=== PATIENT | female | born 1935 | race Caucasian/White ===

== ENCOUNTER 2017-07-10 21:22 | Inpatient (IN) | payer OTHER ==
[~2017-07-10] VITALS: Ht 162.6 cm; Wt 52.2 kg
[~2017-07-10 21:22] MED LIST: NOHOMEMEDICATIONS; NORCO 5-325 TA1 EACH PO
[2017-07-10 21:23] VITALS: BP 171/110
[2017-07-10 21:43] LABS: ABSOLUTE EOSINOPHILS 0.1 thou/uL (0.0-0.7); ABSOLUTE LYMPHOCYTES 3.9 thou/uL (0.8-5.3); ABSOLUTE MONOCYTES 0.5 thou/uL (0.0-1.2); ABSOLUTE NEUTROPHILS 3.9 thou/uL (1.6-8.1); BASOPHILS 0.6 %; EOSINOPHILS 0.8 %; HEMATOCRIT 34.6 % (37.0-47.0); HEMOGLOBIN 11.5 gm/dL (12.0-15.0); LYMPHOCYTES 46.4 %; MCH 33.6 pg (26.0-34.0); MCHC 33.3 g/dL (28.0-37.0); MCV 100.6 fL (80.0-100.0); MONOCYTES 6.1 %; MPV 7.1 fl. (7.2-11.1); NUCLEATED RBCS 0 /100WBC; PLATELET COUNT* 188 thou/uL (150-400); POLYS 46.1 %; RBC 3.44 mil/uL (4.20-5.00); RDW-CV 13.6 % (10.5-14.5); WBC 8.4 thou/uL (4.0-11.0)
[2017-07-10 21:51] LABS: APTT 24.7 Seconds (25.0-31.3)
[2017-07-10 22:05] LABS: ALBUMIN 3.3 g/dL (3.4-5.0); BUN 20 mg/dL (7-18); CALCIUM 8.8 mg/dL (8.5-10.1); GLUCOSE 272 mg/dL (70-99); LIPASE 217 U/L (73-393); NT-PRO BRAIN NAT PEPTIDE 642 pg/mL (<300); SGOT 70 U/L (15-37); SGPT 53 U/L (30-65); TROPONIN-I LEVEL <0.06 ng/mL (<0.06)
[2017-07-10 22:17] LABS: ALKALINE PHOSPHATASE 143 U/L (46-116); ANION GAP 7 mmol/L (7-16); CHLORIDE 99 mmol/L (98-107); CO2 34 mmol/L (21-32); POTASSIUM 4.1 mmol/L (3.5-5.1); SODIUM 140 mmol/L (136-145); TOTAL BILIRUBIN 0.3 mg/dL (<0.1-1.0)
[2017-07-10 22:32] LABS: HCO3 33.4 mmol/L (22.0-26.0); PCO2 81.1 mmHg (35.0-45.0); PO2 97.1 mmHg (75.0-100.0)
[2017-07-10 22:33] LABS: BE 3.6 mmol/L (-2 to +3)
[2017-07-10 23:43] VITALS: BP 119/53
[2017-07-11] VITALS (22 sets, daily range): BP systolic 93–152; BP diastolic 51–94
[2017-07-11 07:36] LABS: BE 2.4 mmol/L (-2 to +3); HCO3 28.6 mmol/L (22.0-26.0); PCO2 52.2 mmHg (35.0-45.0); PO2 99.9 mmHg (75.0-100.0)
[2017-07-11] MEDS ORDERED: GABAPENTIN 100100 MG PO (09:31)
[2017-07-11] MEDS ORDERED: PAXIL10 MG PO ×2 (09:32→09:35)
[2017-07-11] MEDS ORDERED: DUONEB 2.5-0.5 M3 ML INH (09:32)
[2017-07-11] MEDS ORDERED: COLACE100 MG PO (09:33)
[2017-07-11] MEDS ORDERED: LASIX 20 MG TAB20 MG PO (09:33)
[2017-07-11] MEDS ORDERED: PRIMIDONE50 MG PO (09:33)
[2017-07-11] MEDS ORDERED: LIPITOR10 MG PO (09:34)
[2017-07-11] MEDS ORDERED: ATIVAN0.5 MG PO (09:34)
[2017-07-11] MEDS ORDERED: ZYRTEC10 M4 PO (09:35)
[2017-07-11] MEDS ORDERED: ALDACTONE25 MG PO (09:36)
[2017-07-11] MEDS ORDERED: SPIRIVA INH (09:37)
[2017-07-11] MEDS ORDERED: SYMBICORT160 MCG/4. INH (09:37)
[2017-07-11] MEDS ORDERED: LOPRESSOR25 PO (09:38)
--- NOTE | 2017-07-11 11:48 | EKG ---
[place] [address] ELECTROCARDIOGRAM REPORT Name: YVES CARRANZA Room: [address] IN .R.#: [id number] Admission: 07/10/17 Attend Phys: Mario Funes MD Discharge: 07/21/17 Date of : 35 Report #: [id number] THIS REPORT FOR: //name// [facility] ED Test Date: 2017-07-10 Test Time: 21:36:31 Pat Name: YVES CARRANZA Department: Room: [facility] Gender: F Manager Hospitality: BD : 1935 Requested By: Mendoza Mays Order Number: [id number] MD: Hany Diego Measurements Intervals [place] Rate: 108 P: 70 WV: 130 QRS: -7 QRSD: 139 T: 132 QT: 370 QTc: 496 Interpretive Statements Fast sinus arrhythmia Left atrial enlargement Left bundle branch block No previous ECG available for comparison Electronically Signed On 07-11-2017 11:48:36 LAB CLERK by Hany Diego [email or web address] <ELECTRONICALLY SIGNED> By: Hany Diego MD, [facility] 07/11/17 1148 2136 35 Hany Diego MD, [facility] /EPI
--- NOTE | 2017-07-11 13:08 | CON ---
[address] [address] CONSULTATION Name: DILLONYVES David Room: [address] IN ..#: [id number] Admission: 07/10/17 Attend Phys: Mario Funes MD Discharge: 07/21/17 Date of : 35 Report #: [id number] THIS REPORT FOR: //name// CC: Jazlyn Funse DATE OF SERVICE: 07/11/2017 REQUESTING PHYSICIAN: Mario Funes MD. REASON FOR CONSULTATION: Acute respiratory failure. DISCUSSION: The patient is a pleasant 81-year-old woman who was brought in by ambulance after being found less responsive with low O2 saturations yesterday. She was brought in via EMS. She has not been at this facility previously due to her low O2 saturations. She was seen in the Emergency Department with low sats. She is typically on O2 at home. Was placed on BiPAP and blood gases came back revealing marked hypercapnia. Her pH was down to 7.23 with a pCO2 of 81. Was placed in the ICU overnight, is on BiPAP. Follow up blood gases did show some improvement this morning. She was taken off BiPAP just prior to my arrival there. Currently, family is not here; reportedly, her daughter is en route. She has not been at this facility before, so we have limited information on her. She is not a very good historian. She is a former smoker and has been told she has COPD. She does have inhalers at home as well as a nebulizer. She is chronically on O2 reportedly at 4 liters. She cannot recall if she is chronically on prednisone. She notes she had been getting more short of breath. Denies any chest pain or hemoptysis. She states she has seen a early morning in the past, but was told there was nothing else that could be done and she was just to follow up with her regular physician. She also has a history of heart disease and sees Dr. Flanagan for that. She apparently was at [facility] a year ago. She was on the ventilator. She notes at one point, there was talk of withdrawal of care. She was able to improve, was extubated and did have spent a long time in skilled before she was able to get home. PAST MEDICAL HISTORY: Difficult to get in detail. Again, she is not a very good historian. She notes she also did not sleep well. Has COPD and heart disease. It is not clear if she had any stents placed last year. Has had a prior appendectomy. SOCIAL HISTORY: Former smoker. She quit at least several years ago, she cannot recall. She is originally from [place], came to [facility] in the late 1950s. FAMILY HISTORY: [place] [address] CONSULTATION Name: DILLONYVES Hernandez Room: [address] IN [facility]#: [id number] Admission: 07/10/17 Attend Phys: Mario Funes MD Discharge: 07/21/17 Date of : 35 Report #: [id number] REVIEW OF SYSTEMS: Question some of the reliability given her condition at this time. She is awake, alert, but again not a very good historian at this time. She notes she does tend to cough when she takes any liquids or p.o. intake. However, she does not feel like she is aspirating. She denies vomiting at home. Has not had any swelling in her lower extremities. Denies any chest pain. She is chronically short of breath. PHYSICAL EXAMINATION: GENERAL APPEARANCE: Have a thin, chronically ill-appearing woman. Is currently on O2 via nasal cannula in the Intensive Care Unit. She is a little hard of hearing. Is fair to poor historian at this time. HEENT: Head is normocephalic. Sclerae nonicteric. Mucous membranes do look dry. NECK: Negative for adenopathy. Neck veins are prominent. Neck muscles well developed. No supraclavicular adenopathy is noted. HEART: Regular. Mildly tachycardic. No S3 is heard. LUNGS: Reveal breath sounds to be markedly diminished. She has a few expiratory wheezes heard. A few rhonchi. Cough is fair as she is quite thin. ABDOMEN: Soft. She denies any tenderness to palpation. No definite hepatosplenomegaly is noted. Mcneil catheter in place. EXTREMITIES: Thin. She has some muscle wasting. Does have quite few ecchymotic areas noted over her arms. No calf tenderness. LABORATORY AND X-RAY FINDINGS: A chest x-ray shows prominence of interstitial markings noted bilaterally, left greater than right. She has some blunting of the costophrenic angle and has a very small left pleural effusion. We have no older films available for comparison purposes. Cannot rule out some underlying interstitial lung disease. Arterial blood gases yesterday evening when she arrived, she had a pH 7.23, a pCO2 of 81, a pO2 of 97, a bicarbonate of 33 with a saturation of 97%. Repeat gases this morning pH 7.35, a pCO2 of 52, pO2 of 100, bicarbonate of 29 and FiO2 of 35% on the BiPAP. She is now on nasal cannula with O2 saturations in the high 90s. White blood cell count 8400, hemoglobin 11.5, hematocrit 34.6, MCV 101. Platelets are normal. On her chemistry, BUN is 20, creatinine of 1.0, serum bicarbonate was 34. ProBNP 642, lactic acid was 1.7, up to 3.3. Albumin 3.3. Troponins unremarkable. Coag studies unremarkable. Blood cultures were sent. IMPRESSION: 1. Acute respiratory failure superimposed on chronic respiratory failure. Baseline does appear to have chronic obstructive pulmonary disease, most likely severe. She is O2 dependent but not clear if she is steroid dependent or not. Clinically, has improved with BiPAP overnight, though she was quite uncomfortable with it. 2. Chronic obstructive pulmonary disease, baseline appears that she has severe disease. Cannot rule out some [place] [address] CONSULTATION Name: YVES CARRANZA Room: [address] IN [facility].#: [id number] Admission: 07/10/17 Attend Phys: Mario Funes MD Discharge: 07/21/17 Date of : 35 Report #: [id number] 3. History of coronary artery disease. Does not appear to be any ryland pulmonary edema. Status of her LV is unknown. 4. Prior episode of acute respiratory failure, reportedly requiring intubation. 5. Long-term prognosis certainly guarded. RECOMMENDATIONS: 1. We will need to review her current home meds. In the interim, we will keep her DuoNeb going to be changed every 4 hours, also add Brovana as she may be on a long-acting bronchodilator at home. 2. Continue with IV steroids. 3. Continue with antibiotics empirically. Also, check respiratory viral panel. 4. We will need to get outside records to review. 5. Discussed with patient. She does believe that she has a living will/advance directive. When asked about intubation and resuscitative measures, she indicates that she would not want those measures done. She is wanting to continue with care, otherwise. I have asked the nurse to clarify with her daughter when she comes in; in fact, she does have the directives. I certainly would support a DNR/DNI order given her age and her significant comorbidities. 6. Also, it is okay with me to transfer out of ICU. <ELECTRONICALLY SIGNED> By: Heaven Jimenez MD 07/11/17 1308 0854 1142Heaven Jimenez MD /nt
[2017-07-11 16:43] LABS: ABSOLUTE LYMPHOCYTES 0.5 thou/uL (0.8-5.3); ABSOLUTE MONOCYTES 0.2 thou/uL (0.0-1.2); ABSOLUTE NEUTROPHILS 5.6 thou/uL (1.6-8.1); BASOPHILS 0.3 %; HEMOGLOBIN 10.5 gm/dL (12.0-15.0); LYMPHOCYTES 7.9 %; MCH 33.7 pg (26.0-34.0); MCHC 34.8 g/dL (28.0-37.0); MCV 96.9 fL (80.0-100.0); MONOCYTES 3.9 %; MPV 7.6 fl. (7.2-11.1); NUCLEATED RBCS 0 /100WBC; POLYS 87.9 %; RDW-CV 13.8 % (10.5-14.5); WBC 6.3 thou/uL (4.0-11.0)
[2017-07-11 16:53] LABS: APTT 24.5 Seconds (25.0-31.3); INR 1.1; PROTIME 10.6 Seconds (9.20-11.50)
[2017-07-11 16:57] LABS: PLATELET COUNT* 84 thou/uL (150-400)
[2017-07-11 17:41] LABS: PLATELET ESTIMATE DECREASED
[2017-07-12] VITALS (20 sets, daily range): BP systolic 101–161; BP diastolic 57–96
[2017-07-12 06:00] LABS: HEMATOCRIT 27.2 % (37.0-47.0); HEMOGLOBIN 9.1 gm/dL (12.0-15.0); MCH 33.3 pg (26.0-34.0); MCHC 33.5 g/dL (28.0-37.0); MCV 99.3 fL (80.0-100.0); MPV 7.7 fl. (7.2-11.1); NUCLEATED RBCS 1 /100WBC; PLATELET COUNT* 126 thou/uL (150-400); RBC 2.74 mil/uL (4.20-5.00); RDW-CV 13.9 % (10.5-14.5); WBC 6.3 thou/uL (4.0-11.0)
[2017-07-12 06:03] LABS: CALCIUM 7.3 mg/dL (8.5-10.1); CREATININE 0.7 mg/dL (0.6-1.3)
[2017-07-12 07:32] LABS: ABSOLUTE LYMPHOCYTES 0.2 thou/uL (0.8-5.3); ABSOLUTE MONOCYTES 0.1 thou/uL (0.0-1.2); METAMYELOCYTES 1 %; PLATELET ESTIMATE ADEQUATE
[2017-07-12 10:34] LABS: BE 0.8 mmol/L (-2 to +3); HCO3 27.9 mmol/L (22.0-26.0); PO2 91.5 mmHg (75.0-100.0); pH 7.306 (7.340-7.450)
[2017-07-12 10:37] LABS: PCO2 57.2 mmHg (35.0-45.0)
--- NOTE | 2017-07-12 13:52 | EKG ---
[place] [address] ELECTROCARDIOGRAM REPORT Name: YVES CARRANZA Room: [address] IN .R.#: [id number] Admission: 07/10/17 Attend Phys: Mario Funes MD Discharge: 07/21/17 Date of : 35 Report #: [id number] THIS REPORT FOR: //name// [facility] Test Date: 2017-07-11 Test Time: 15:29:18 Pat Name: YVES CARRANZA Department: Room: [address] Gender: F Concrete Tester: UNKNOWN : 1935 Requested By: Mario Funes Order Number: [id number] Reading MD: Hany Diego Measurements Intervals [place] Rate: 95 P: 119 MS: 158 QRS: -14 QRSD: 139 T: 133 QT: 375 QTc: 472 Interpretive Statements Sinus rhythm Atrial premature complex Left bundle branch block Compared to ECG 07/10/2017 21:36:31 Atrial premature complex(es) now present Sinus arrhythmia no longer present Atrial abnormality no longer present Electronically Signed On 07-12-2017 13:52:43 MICROWAVE SUPERVISOR by Hany Diego [email or web address] <ELECTRONICALLY SIGNED> By: Hany Diego MD, FACC 07/12/17 1352 1529 1529 Hany Diego MD, FAC /EPI
--- NOTE | 2017-07-12 13:52 | EKG ---
[place] [address] ELECTROCARDIOGRAM REPORT Name: YVES CARRANZA David Room: [address] IN M.R.#: [id number] Admission: 07/10/17 Attend Phys: Mario Funes MD Discharge: 07/21/17 Date of : 35 Report #: [id number] THIS REPORT FOR: //name// [facility] Test Date: 2017-07-11 Test Time: 11:44:19 Pat Name: YVES CARRANZA Department: Room: [address] Gender: F Sales Appointment Coordinator: : 1935 Requested By: Mario Funes Order Number: [id number] Arely MD: Hany Diego Measurements Intervals [place] Rate: 83 P: [place]: QRS: 4 QRSD: 137 T: 155 QT: 438 QTc: 515 Interpretive Statements Sinus rhythm Left bundle branch block Compared to ECG 07/10/2017 21:36:31 Atrial abnormality no longer present Electronically Signed On 07-12-2017 13:52:11 MANHOLE BUILDER by Hany Diego [email or web address] <ELECTRONICALLY SIGNED> By: Hany Diego MD, FAC 07/12/17 1352 1144 1144 Hany Diego MD, [facility] /EPI
[2017-07-13 04:17] VITALS: BP 159/87
[2017-07-13 05:15] LABS: ABSOLUTE BASOPHILS 0.1 thou/uL (0.0-0.2); ABSOLUTE LYMPHOCYTES 0.6 thou/uL (0.8-5.3); ABSOLUTE MONOCYTES 0.1 thou/uL (0.0-1.2); ABSOLUTE NEUTROPHILS 4.3 thou/uL (1.6-8.1); BASOPHILS 1.7 %; HEMATOCRIT 25.7 % (37.0-47.0); HEMOGLOBIN 9.1 gm/dL (12.0-15.0); LYMPHOCYTES 10.9 %; MCH 33.6 pg (26.0-34.0); MCHC 35.2 g/dL (28.0-37.0); MCV 95.3 fL (80.0-100.0); MONOCYTES 2.9 %; MPV 7.4 fl. (7.2-11.1); NUCLEATED RBCS 0 /100WBC; PLATELET COUNT* 107 thou/uL (150-400); POLYS 84.5 %; WBC 5.1 thou/uL (4.0-11.0)
[2017-07-13 05:36] LABS: ALBUMIN 2.9 g/dL (3.4-5.0); CALCIUM 7.3 mg/dL (8.5-10.1); CREATININE 0.6 mg/dL (0.6-1.3); POTASSIUM 3.5 mmol/L (3.5-5.1); TOTAL BILIRUBIN 0.2 mg/dL (<0.1-1.0)
[2017-07-13 08:00] VITALS: BP 137/80
[2017-07-13 09:11] LABS: BE -1.5 mmol/L (-2 to +3); HCO3 22.2 mmol/L (22.0-26.0); PCO2 33.8 mmHg (35.0-45.0); pH 7.436 (7.340-7.450)
[2017-07-13 16:56] VITALS: BP 138/70
[2017-07-13 20:49] VITALS: BP 147/71
[2017-07-14 00:17] VITALS: BP 158/76
[2017-07-14 04:21] VITALS: BP 156/73
[2017-07-14 05:03] LABS: ABSOLUTE LYMPHOCYTES 0.4 thou/uL (0.8-5.3); ABSOLUTE MONOCYTES 0.2 thou/uL (0.0-1.2); ABSOLUTE NEUTROPHILS 6.5 thou/uL (1.6-8.1); BASOPHILS 0.2 %; HEMATOCRIT 26.3 % (37.0-47.0); HEMOGLOBIN 9.2 gm/dL (12.0-15.0); LYMPHOCYTES 5.9 %; MCH 33.3 pg (26.0-34.0); MCHC 34.8 g/dL (28.0-37.0); MCV 95.6 fL (80.0-100.0); MONOCYTES 3.4 %; MPV 7.7 fl. (7.2-11.1); NUCLEATED RBCS 0 /100WBC; PLATELET COUNT* 127 thou/uL (150-400); POLYS 90.5 %; RBC 2.75 mil/uL (4.20-5.00); RDW-CV 13.8 % (10.5-14.5); WBC 7.2 thou/uL (4.0-11.0)
[2017-07-14 08:08] VITALS: BP 169/86
[2017-07-14 09:18] LABS: CALCIUM 7.5 mg/dL (8.5-10.1); CREATININE 0.7 mg/dL (0.6-1.3); POTASSIUM 3.9 mmol/L (3.5-5.1)
[2017-07-14 12:01] VITALS: BP 141/80
[2017-07-14 16:00] VITALS: BP 152/80
--- NOTE | 2017-07-14 16:52 | EKG ---
[place] [address] ELECTROCARDIOGRAM REPORT Name: YVES CARRANZA Room: [address] IN .R.#: [id number] Admission: 07/10/17 Attend Phys: Mario Funes MD Discharge: 07/21/17 Date of : 35 Report #: [id number] THIS REPORT FOR: //name// [facility] Test Date: 2017-07-14 Test Time: 10:11:10 Pat Name: YVES CARRANZA Department: Room: [address] Gender: F Health Promotion Officer: : 1935 Requested By: Columba Meyer Order Number: [id number] Arely MD: Mg Camarena Measurements Intervals [place] Rate: 77 P: 57 [place]: 136 QRS: 24 QRSD: 143 T: 208 QT: 430 QTc: 487 Interpretive Statements Sinus rhythm Left bundle branch block Compared to ECG 07/11/2017 15:29:18 Atrial premature complex(es) no longer present Electronically Signed On 07-14-2017 16:52:00 MANAGER COMPLIANCE by Mg Camarena [email or web address] <ELECTRONICALLY SIGNED> By: Mg Camarena MD, FACC 07/14/17 1652 1011 1011 Mg Camarena MD, [facility] /EPI
[2017-07-14 20:00] VITALS: BP 136/79
[2017-07-15] VITALS: BP 153/65
[2017-07-15 04:00] VITALS: BP 121/79
[2017-07-15 07:54] VITALS: BP 171/80
[2017-07-15 11:31] VITALS: BP 88/67
[2017-07-15] MEDS ORDERED: PRESERVISION T1 EACH PO (11:43)
[2017-07-15] MEDS ORDERED: VISINE15 ML OPHTHALMIC (11:45)
[2017-07-15 16:05] VITALS: BP 145/63
[2017-07-15 20:00] VITALS: BP 152/71
[2017-07-16 00:06] VITALS: BP 161/80
[2017-07-16 04:15] VITALS: BP 152/70
[2017-07-16 08:03] VITALS: BP 174/83
[2017-07-16 09:38] LABS: CALCIUM 7.3 mg/dL (8.5-10.1); CREATININE 0.7 mg/dL (0.6-1.3); MAGNESIUM 1.8 mg/dL (1.8-2.4); POTASSIUM 3.1 mmol/L (3.5-5.1)
[2017-07-16 10:45] VITALS: BP 174/83
[2017-07-16 15:30] VITALS: BP 152/77
[2017-07-16 20:00] VITALS: BP 102/43
[2017-07-17] VITALS (7 sets, daily range): BP systolic 114–166; BP diastolic 69–84
--- NOTE | 2017-07-17 10:10 | EKG ---
[place] [address] ELECTROCARDIOGRAM REPORT Name: YVES CARRANZA Room: [address] IN .R.#: [id number] Admission: 07/10/17 Attend Phys: Mario Funes MD Discharge: 07/21/17 Date of : 35 Report #: [id number] THIS REPORT FOR: //name// [facility] Test Date: 2017-07-16 Test Time: 16:58:29 Pat Name: YVES CARRANZA Department: Room: [address] Gender: F Entomology Teacher: KF : 1935 Requested By: Mario Funes Order Number: [id number] Arely MD: Mg Camarena Measurements Intervals [place] Rate: 84 P: 42 [place]: 127 QRS: -10 QRSD: 137 T: 206 QT: 411 QTc: 486 Interpretive Statements Sinus rhythm Left bundle branch block Compared to ECG 07/14/2017 10:11:10 No significant changes Electronically Signed On 07-17-2017 10:10:05 FLAT CUTTER by Mg Camarena [email or web address] <ELECTRONICALLY SIGNED> By: Mg Camarena MD, [facility] 07/17/17 1010 1658 1658 Mg Camarena MD, [facility] /EPI
[2017-07-18 04:01] VITALS: BP 136/77
[2017-07-18 07:50] VITALS: BP 157/77
[2017-07-18 12:00] VITALS: BP 142/47; BP 93/59
--- NOTE | 2017-07-18 12:43 | EKG ---
[place] [address] ELECTROCARDIOGRAM REPORT Name: YVES CARRANZA Room: [address] IN .R.#: [id number] Admission: 07/10/17 Attend Phys: Mario Funes MD Discharge: 07/21/17 Date of : 35 Report #: [id number] THIS REPORT FOR: //name// [facility] Test Date: 2017-07-18 Test Time: 09:35:45 Pat Name: YVES CARRANZA Department: Room: [address] Gender: F Power Plant Electrician: ERIKA : 1935 Requested By: Kulwinder Bell Order Number: [id number] Arley MD: Mg Camarena Measurements Intervals [place] Rate: 81 P: 68 [place]: 123 QRS: 5 QRSD: 142 T: 188 QT: 386 QTc: 448 Interpretive Statements Sinus arrhythmia Probable left atrial enlargement Left bundle branch block Compared to ECG 07/16/2017 16:58:29 Sinus rhythm no longer present Electronically Signed On 07-18-2017 12:43:06 EXTENSION EDGER by Mg Camarena [email or web address] <ELECTRONICALLY SIGNED> By: Mg Camarena MD, FACC 07/18/17 1243 0935 0935 Mg Camarena MD, [facility] /EPI
[2017-07-18 16:17] VITALS: BP 109/62
[2017-07-18 20:00] VITALS: BP 143/75
[2017-07-19] VITALS: BP 140/75
[2017-07-19 04:11] VITALS: BP 149/75
[2017-07-19 08:00] VITALS: BP 137/53
[2017-07-19 11:55] VITALS: BP 116/63
[2017-07-19 20:00] VITALS: BP 141/75
[2017-07-20 00:48] VITALS: BP 138/68
[2017-07-20 05:01] VITALS: BP 145/65
[2017-07-20 07:30] VITALS: BP 139/70
--- NOTE | 2017-07-20 08:34 | CON ---
[address] [address] CONSULTATION Name: YVES CARRANZA Room: [address] IN .R.#: [id number] Admission: 07/10/17 Attend Phys: Mario Funes MD Discharge: 07/21/17 Date of : 35 Report #: [id number] THIS REPORT FOR: //name// CC: Jazlyn Otero INDICATION: Elevated troponin consistent with non-ST elevation myocardial infarction. HISTORY OF PRESENT ILLNESS: The patient is a very pleasant 81-year-old white female whose primary problem is underlying O2-dependent severe COPD. She was admitted to the hospital with pyccf-bo-vupyfvm respiratory failure and pneumonia. She has a history of paroxysmal atrial fibrillation and chronic left bundle-branch block. She has not had any atrial arrhythmias during this hospitalization. She has some chest pain with cough and in the lower left chest region. Her initial troponin on arrival was less than 0.06, then subsequently 1.17, 0.71 and 0.60. She has a history of non-ST elevation myocardial infarction in the past. By echocardiogram at an outside facility, she has an ejection fraction of 45% and grade 1 diastolic dysfunction. At the time of my interview, she was stable. She was breathing better. She is not having any significant chest pain or palpitations. She was recently taken off BiPAP and appears to be doing well. PAST MEDICAL HISTORY: Abdominal aortic aneurysm. CURRENT MEDICATIONS: Lopressor 25 mg p.o. daily, Plavix 75 mg p.o. daily, Protonix 40 mg p.o. daily, atorvastatin 10 mg p.o. at bedtime, gabapentin 100 mg p.o. at bedtime, Brovana 15 mcg b.i.d., nitro drip 10 mcg titrate as needed, heparin drip, morphine p.r.n., Combivent q. 4 hours, Paxil 10 mg daily, primidone 50 mg b.i.d., Tessalon Perles 100 mg q. 6 hours, furosemide 20 mg p.o. daily, lorazepam 0.5 mg b.i.d., guaifenesin 1200 mg p.o. b.i.d., Rocephin 1 gram IV daily, azithromycin 250 mg IV daily, hydralazine p.r.n., Zofran p.r.n., Colace 100 mg p.o. daily, MiraLax 17 grams p.o. daily, Tylenol p.r.n., methylprednisolone 62.5 mg IV q. 8 hours. SOCIAL HISTORY: The patient recently quit smoking. She does not drink alcohol. She is . She lives with her and daughter. FAMILY HISTORY: Noncontributory. REVIEW OF SYSTEMS: GENERAL: She denies convulsions, seizures or focal paralysis. In general, there is no unexplained weight loss. She does not have fever. She reports cough productive of zaugx-ia-upmrxl sputum. She has emphysema. CARDIOVASCULAR: She has some chest discomfort as outlined above. She denies [facility] [address] [place] [address] CONSULTATION Name: YVES CARRANZA Room: [address]#: [id number] Admission: 07/10/17 Attend Phys: Mario Funes MD Discharge: 07/21/17 Date of : 35 Report #: [id number] palpitations. She is not having orthopnea. She does have a history of heart murmur. ENDOCRINE: She denies diabetes or thyroid disease. GASTROINTESTINAL: No vomiting, hematemesis, melena or hematochezia. GENITOURINARY: No dysuria or hematuria. HEMATOLOGIC AND LYMPHATIC: She denies bleeding disorder, cancer or blood clots. She has a history of anemia. ALLERGIC AND IMMUNOLOGIC: She has intolerance to ASPIRIN, which causes bruising. No seasonal allergies. PSYCHIATRIC: No depression or anxiety. 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 SKIN: Significant bruising, but no recent rashes or hives. EYES: No acute loss of vision. EARS, NOSE, MOUTH AND THROAT: She denies decreased hearing, no epistaxis. PHYSICAL EXAMINATION: VITAL SIGNS: Stable. Blood pressure 133/92, pulse of 74 and regular. GENERAL: She is a thin, pleasant, elderly female in no distress. Mood and affect appropriate. HEENT: Extraocular muscles intact. Mucous membranes moist. NECK: Shows no jugular venous distention. I do not appreciate carotid bruit. CHEST: Reveals diminished breath sounds with prolonged expiration throughout. CARDIAC: Regular rhythm with grade 1-2/6 systolic ejection murmur. I do not appreciate a gallop. ABDOMEN: Reveals normal bowel sounds. The abdomen is soft, nontender. EXTREMITIES: Shows some bruising, no edema. SKIN: Warm and dry. A 12-lead EKG shows sinus rhythm with left bundle-branch block. LABORATORY DATA: Reviewed. Sodium 139, potassium 4.0, chloride 104, bicarbonate 30, BUN 17, creatinine 0.7, serum glucose 121, AST 70, lipase 217, total bilirubin 0.3, calcium 7.3, magnesium 2.0, alkaline phosphatase 143, ALT 53, total protein 7.0, albumin 3.3, EGFR 80. Lactate 3.3. Troponin presently 0.60. NT-proBNP 642. Protime 10.6, INR 1.1, APTT 65.1. D-dimer 8.49. White blood cell count 6.3, hemoglobin 9.1, MCV 99.3, platelet count 126,000. ABG shows a pH of 7.30, pCO2 57.2, pO2 91.5 on 3 liters nasal cannula. Chest x-ray shows left perihilar and bibasilar infiltrate. There is a very small left pleural effusion. Lungs appear hyperinflated. CTA of the chest shows no evidence of pulmonary embolus. Abdominal images show a 5.4 x 4.5 cm abdominal aortic aneurysm with mural thrombus. IMPRESSION AND RECOMMENDATIONS: 1. Minimally elevated troponin consistent with non-ST elevation myocardial infarction. I suspect this is due to cardiac strain [place] [address] CONSULTATION Name: YVES CARRANZA Room: [address]#: [id number] Admission: 07/10/17 Attend Phys: Mario Funes MD Discharge: 07/21/17 Date of : 35 Report #: [id number] failure. Doubt she has had acute plaque rupture. At this point in time, I would continue medical management. Okay to discontinue heparin drip at this time and substitute Lovenox for DVT prophylaxis. We will discontinue nitro drip at this time as she appears stable. 2. History of paroxysmal atrial fibrillation. She is not anticoagulated due to significant bruising problems. At this time, she is in sinus rhythm. She has not had any recurrence of atrial fibrillation. Would continue to follow clinically. 3. Hyperlipidemia. Continue current statin agent. 4. Chronic obstructive pulmonary disease exacerbation, per Pulmonology. 5. Pneumonia. The patient is on IV antibiotics and steroids and appears to be improving. 6. Abdominal aortic aneurysm, is followed by outside physician serially and appears stable. At this point in time, the patient appears stable from a cardiac standpoint. I would continue medications outlined above with minor adjustments if clinically indicated. I do not plan further invasive or noninvasive evaluation at this time. <ELECTRONICALLY SIGNED> By: Hany Diego MD, FACC 07/20/17 0834 1125 1928Miclee Diego MD, FACC /nt
[2017-07-20 12:49] LABS: CALCIUM 8.9 mg/dL (8.5-10.1); CREATININE 0.7 mg/dL (0.6-1.3); POTASSIUM 4.3 mmol/L (3.5-5.1)
[2017-07-20 14:27] VITALS: BP 174/83
[2017-07-20 15:30] VITALS: BP 127/57
[2017-07-20 20:00] VITALS: BP 142/74
[2017-07-21 08:00] VITALS: BP 90/60
[2017-07-21 16:00] VITALS: BP 118/65
[2017-07-21] MEDS ORDERED: CEFUROXIME250 MG PO (16:23)
[2017-07-21] MEDS ORDERED: PREDNISONE 20 M20 MG PO (16:23)
[2017-07-21] MEDS ORDERED: PLAVIX 75 MG TA75 M1 PO (16:24)
[2017-07-21] MEDS ORDERED: PANTOPRAZOLE SO40 M1 PO (16:24)
[2017-07-21] MEDS ORDERED: CARAFATE 1 GM TA1 G1 PO (16:25)
[2017-07-21] MEDS ORDERED: SIMETHICON CHEW80 M1 PO (16:25)
[2017-07-21 16:55] VITALS: BP 90/60
[2017-07-21] MEDS ORDERED: PROTONIX 20 MG20 M1 PO (17:14)
== END 2017-07-21 18:13 | disposition home health service (06) | DRG 177 ==
LOC: M.ERS 21:22 → M.TBA-ER 22:54 → M.ORTHSURG 22:54 → M.ICU 22:54 → M.2W 07-13 00:06 → M.ORTHSURG 07-19 17:14
PROVIDERS: Family Medicine; Internal Medicine; Internal Medicine Cardiovascular Disease; Internal Medicine Pulmonary Disease; ADMIT Internal Medicine
PROC: 02HV33Z Insertion of Infusion Device into Superior Vena Cava, Percutaneous Approach (ICD-10-PCS; principal; 2017-07-11)
PROC: 5A09357 Assistance with Respiratory Ventilation, Less than 24 Consecutive Hours, Continuous Positive Airway Pressure (ICD-10-PCS; 2017-07-13)
DX: J69.0 Pneumonitis due to inhalation of food and vomit (principal); I21.4 Non-ST elevation (NSTEMI) myocardial infarction; J96.22 Acute and chronic respiratory failure with hypercapnia; J96.21 Acute and chronic respiratory failure with hypoxia; J44.1 Chronic obstructive pulmonary disease with (acute) exacerbation; E87.2 Acidosis; I50.30 Unspecified diastolic (congestive) heart failure; I25.10 Atherosclerotic heart disease of native coronary artery without angina pectoris; I48.0 Paroxysmal atrial fibrillation; E78.5 Hyperlipidemia, unspecified; K59.00 Constipation, unspecified; I71.4 Abdominal aortic aneurysm, without rupture; J84.10 Pulmonary fibrosis, unspecified; I50.9 Heart failure, unspecified; J15.6 Pneumonia due to other Gram-negative bacteria; Z79.899 Other long term (current) drug therapy; Z91.19 Patient's noncompliance with other medical treatment and regimen; K29.70 Gastritis, unspecified, without bleeding; Z87.891 Personal history of nicotine dependence; I25.2 Old myocardial infarction; Z90.49 Acquired absence of other specified parts of digestive tract

== ENCOUNTER 2017-12-08 21:25 | Inpatient (IN) | payer OTHER ==
[~2017-12-08] VITALS: Ht 162.6 cm; Wt 47.2 kg
[~2017-12-08 21:25] MED LIST changes: +ALDACTONE25 MG PO; +ATIVAN0.5 MG PO; +CARAFATE 1 GM TA1 G1 PO; +CEFUROXIME250 MG PO; +COLACE100 MG PO; +DUONEB 2.5-0.5 M3 ML INH; +GABAPENTIN 100100 MG PO; +LASIX 20 MG TAB20 MG PO; +LIPITOR10 MG PO; +LOPRESSOR25 PO; +PANTOPRAZOLE SO40 M1 PO; +PAXIL10 MG PO; +PLAVIX 75 MG TA75 M1 PO; +PREDNISONE 20 M20 MG PO; +PRESERVISION T1 EACH PO; +PRIMIDONE50 MG PO; +PROTONIX 20 MG20 M1 PO; +SIMETHICON CHEW80 M1 PO; +SPIRIVA INH; +SYMBICORT160 MCG/4. INH; +VISINE15 ML OPHTHALMIC; +ZYRTEC10 M4 PO
[2017-12-08 21:27] VITALS: BP 151/75
[2017-12-08] MEDS ORDERED: BISACODYL SUPP10 MG (21:37)
[2017-12-08] MEDS ORDERED: MILK OF MA2400 MG/10 (21:38)
[2017-12-08 21:40] LABS: BE 7.8 mmol/L (-2 to +3); HCO3 33.4 mmol/L (22.0-26.0); PO2 115.1 mmHg (75.0-100.0); pH 7.404 (7.340-7.450)
[2017-12-08] MEDS ORDERED: ACETAMINOPHEN325 MG (21:41)
[2017-12-08] MEDS ORDERED: MIRALAX17 GM (21:43)
[2017-12-08 21:44] LABS: PCO2 54.6 mmHg (35.0-45.0)
[2017-12-08] MEDS ORDERED: BACTROBAN CREAM30 G1 (21:44)
--- NOTE | 2017-12-08 21:45 | NUR ---
SOLUMEDROL 125MG GIVEN IV PER WAX PATTERN COATER
[2017-12-08] MEDS ORDERED: VENTOLIN HFA 1818 GM (21:46)
[2017-12-08] MEDS ORDERED: CALCIUM 500 +1 EAC5 (21:48)
[2017-12-08] MEDS ORDERED: VITAMIN B-12500 MCG (21:51)
[2017-12-08 22:05] LABS: ABSOLUTE LYMPHOCYTES 1.5 thou/uL (0.8-5.3); ABSOLUTE MONOCYTES 0.9 thou/uL (0.0-1.2); ABSOLUTE NEUTROPHILS 7.4 thou/uL (1.6-8.1); BASOPHILS 0.4 %; EOSINOPHILS 0.2 %; HEMATOCRIT 24.5 % (37.0-47.0); HEMOGLOBIN 8.1 gm/dL (12.0-15.0); LYMPHOCYTES 15.6 %; MCHC 33.2 g/dL (28.0-37.0); MCV 102.6 fL (80.0-100.0); MPV 7.4 fl. (7.2-11.1); NUCLEATED RBCS 1 /100WBC; PLATELET COUNT* 209 thou/uL (150-400); POLYS 74.8 %; RBC 2.38 mil/uL (4.20-5.00); RDW-CV 16.9 % (10.5-14.5); WBC 9.9 thou/uL (4.0-11.0)
[2017-12-08] MEDS ORDERED: IRON325 (22:14)
[2017-12-08] MEDS ORDERED: FLONASE 0.05%50 MCG (22:15)
[2017-12-08] MEDS ORDERED: OCUVITE EYE +1 EACH (22:19)
[2017-12-08 22:20] LABS: CALCIUM 9.3 mg/dL (8.5-10.1); CREATININE 0.9 mg/dL (0.6-1.3); POTASSIUM 4.1 mmol/L (3.5-5.1)
[2017-12-08] MEDS ORDERED: MUCINEX600 MG (22:23)
[2017-12-08] MEDS ORDERED: AUGMENTIN 875-1 EACH (22:23)
[2017-12-08] MEDS ORDERED: HYDROCODONE-AP1 EAC6 (22:25)
[2017-12-08] MEDS ORDERED: PREDNISONE 10 M10 MG (22:27)
[2017-12-08] MEDS ORDERED: FLORASTOR250 MG (22:29)
[2017-12-08 22:30] LABS: APTT 20.8 Seconds (25.0-31.3); PROTIME 9.6 Seconds (9.20-11.50)
[2017-12-08 22:31] LABS: ALBUMIN 3.2 g/dL (3.4-5.0); TOTAL BILIRUBIN 0.4 mg/dL (<0.1-1.0); TOTAL PROTEIN 7.2 g/dL (6.4-8.2); TROPONIN-I LEVEL 0.1 ng/mL (<0.06)
[2017-12-09] VITALS (18 sets, daily range): BP systolic 92–143; BP diastolic 51–80
[2017-12-09 00:01] LABS: BE 9.8 mmol/L (-2 to +3); HCO3 35.1 mmol/L (22.0-26.0); PO2 78.2 mmHg (75.0-100.0)
[2017-12-09 00:05] LABS: PCO2 52.8 mmHg (35.0-45.0)
[2017-12-09] MEDS ORDERED: TESSALON PERLE100 MG PO (03:36)
[2017-12-09] MEDS ORDERED: AUGMENTIN 875-1 EACH (03:38)
[2017-12-09] MEDS ORDERED: KETOTIFEN FUMARA5 ML OPHTHALMIC (03:45)
--- NOTE | 2017-12-09 04:29 | NUR ---
PATIENT RESTED IN BED, NO ACUTE CHANGES. PATIENT DID NOT COMPLAIN OF CHEST PAIN, PATIENT ON TWO LITERS O2. VITALS ARE STABLE, PATIENT DID NOT SHOW SIGNS OF DISTRESS. FALL PRECUAITONS IN PLACE, BED ALARM ON, CALL LIGHT WITHIN REACH, HOURLY ROUNDING OBSERVED.
--- NOTE | 2017-12-09 04:33 | NUR ---
DOCTOR YAMILA NOTIFIED OF TROPS., NO NEW ORDERS.
--- NOTE | 2017-12-09 06:54 | NUR ---
PATIENT REQUEST FOR ATIVAN, CALL SENT TO DOCTOR, NO NEW ORDERS.
--- NOTE | 2017-12-09 07:25 | NUR ---
CALL TO DOCTOR REGARDING PATIENT FLUID RATE, SEE ORDERS.
--- NOTE | 2017-12-09 10:05 | NUR ---
RECEIVED REPORT FROM GRISELDA AND ASSUMED CARE OF PT @ 3318.PT IS A/O X4,VSS,TRACING SR WITH BBB ON THE MONITOR.LUNG SOUNDS ARE DIMINSHED WITH WHEEZES.PT REMAINS ON 2L O2 NC.LAST BM WAS YESTERDAY.IV LEFT AC PATENT WITH NS RUNNING @ 100.PT IS ANXIOUS AND COOPERATIVE WITH NO C/O PAIN AT TIME OF ASSESSMENT.PT IS UP WITH ONE ASSIST TO BSC.PT LEFT RESTING IN BED WITH CALL LIGHT AND FALL PRECAUTIONS IN PLACE.WILL CONTINUE TO MONITOR. PT IV FLUIDS D/C.PT GIVEN ATIVAN FOR ANXIETY.
--- NOTE | 2017-12-09 12:14 | NUR ---
MET WITH PT TO DISCUSS HOME SITUATION/DC PLANNING. PT WAS ADMITTED WITH [facility]. SHE HAD ONLY BEEN THERE SINCE 12/05. SPOKE WITH AMANDA/STEVEN, THEY WILL ACCEPT BACK BUT NEED TO GET INSURANCE AUTH AGAIN, PT NEEDS PT/OT BRENDA. PT NORMALLY LIVES WITH HER AND DTR/KIMBERLEY. STATES HER HAS DEMENTIA, DTR IS CARING FOR HIM AT THIS TIME. PT USES O2 AND NEBULZIER THRU [facility] AT HOME. SHE IS STILL SOA THIS AM. ENCOURAGEMENT GIVEN. WILL FOLLOW KIMBERLEY IS DPOA
--- NOTE | 2017-12-09 13:07 | NUR ---
PT C/O DIFFICULTY BREATHING AND BACK PAIN.PT PUT ON BIPAP. NOTIFIED AND ORDERS PUT IN.PT MOVED TO ICU.FAMILY NOTIFIED OF PT STATUS CHANGE AND TRANSFER.HEART MONITOR REMOVED AND RETURNED TO NURSING STATION.
[2017-12-09 13:12] LABS: BE -1.3 mmol/L (-2 to +3); HCO3 28.6 mmol/L (22.0-26.0)
[2017-12-09 13:17] LABS: PCO2 86.4 mmHg (35.0-45.0); pH 7.138 (7.340-7.450)
[2017-12-09 13:18] LABS: PO2 < 23.5 mmHg (75.0-100.0)
--- NOTE | 2017-12-09 15:00 | EKG ---
[place] [address] ELECTROCARDIOGRAM REPORT Name: YVES CARRANZA Room: [address] IN R.#: [id number] Admission: 12/08/17 Attend Phys: Kulwinder Bell MD Discharge: 12/16/17 Date of : 35 Report #: [id number] THIS REPORT FOR: //name// [facility] ED Test Date: 2017-12-08 Test Time: 23:48:49 Pat Name: YVES CARRANZA Department: Room: [place] [address] Gender: F Brew House Supervisor: : 1935 Requested By: Genevieve Currie Order Number: [id number] MD: Anant Stout Measurements Intervals [place] Rate: 91 P: 77 [place]: 133 QRS: -19 QRSD: 141 T: 144 QT: 395 QTc: 487 Interpretive Statements Sinus rhythm Probable left atrial enlargement Left bundle branch block Baseline wander in lead(s) V2 Compared to ECG 07/18/2017 09:35:45 Sinus arrhythmia no longer present Electronically Signed On 12-09-2017 15:00:45 CDT by Anant Stout [email or web address] <ELECTRONICALLY SIGNED> By: Anant Stout MD, [facility] 12/09/17 1500 2348 2348 Anant Stout MD, [facility] /EPI
--- NOTE | 2017-12-09 15:00 | EKG ---
[place] [address] ELECTROCARDIOGRAM REPORT Name: YVES CARRANZA Room: [address] IN [facility].#: [id number] Admission: 12/08/17 Attend Phys: Kulwinder eBll MD Discharge: 12/16/17 Date of : 35 Report #: [id number] THIS REPORT FOR: //name// [facility] ED Test Date: 2017-12-08 Test Time: 21:38:51 Pat Name: YVES CARRANZA Department: Room: Gender: Business Process Consultant: : 1935 Requested By: Genevieve Currie Order Number: [id number] MD: Anant Stout Measurements Intervals [place] Rate: 85 P: 65 TX: 130 QRS: -17 QRSD: 145 T: 144 QT: 405 QTc: 482 Interpretive Statements Sinus rhythm Probable left atrial enlargement Left bundle branch block Compared to ECG 07/18/2017 09:35:45 Sinus arrhythmia no longer present Electronically Signed On 12-09-2017 15:00:26 CDT by Anant Stout [email or web address] <ELECTRONICALLY SIGNED> By: Anant Stout MD, FAC 12/09/17 1500 37 37 Anant Stout MD, [facility] /EPI
--- NOTE | 2017-12-09 15:05 | EKG ---
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: [facility] : 1935 Requested By: Mario Funes Order Number: [id number] Arely MD: Anant Stout Measurements Intervals [place] Rate: 138 P: 64 NV: 110 QRS: -12 QRSD: 150 T: 156 QT: 317 QTc: 481 Interpretive Statements Sinus tachycardia Left bundle branch block Artifact in lead(s) III,aVL,aVF,V1,V5,V6 Compared to ECG 07/18/2017 09:35:45 Sinus arrhythmia no longer present Heart rate has increased Electronically Signed On 12-09-2017 15:05:36 CDT by Anant Stout [email or web address] <ELECTRONICALLY SIGNED> By: Anant Stout MD, [facility] 12/09/17 1505 1225 1225 Anant Stout MD, [facility] /EPI
--- NOTE | 2017-12-09 15:06 | NUR ---
PATIENT ARRIVED IN ICU FROM TELEMETRY AT 1252 IN ACUTE RESPIRATORY DISTRESS. REPORT RECIEVED BESDIDE FROM HAROLDO BRYAN. DR STARKS NOTIFIED FOR EMERGENT INTUBATION ORDERED BY DR AGUSTIN. PATIENT HAD PREIVOUSLY HAD CONVERSATION WITH DR TORREZ THAT SHE WANTED ALL MEASURES DONE. AT 1315, PATIENT INTUBATED WITH 7.0 ET TUBE, 24 AT THE LIP CONFIRMED BY XRAY. OG AT 55 CM IN STOMACH, CONFIRMED BY XRAY. VERBAL ORDERS GIVEN BY DR STARKS FOR OKAY FOR USE OF BOTH. LEFT IJ BLEEDING, PRESSURE HELD FOR ADDITIONAL 10 MINUTES AND REDRESSED, NO CONTINUED BLEEDING NOTED. GUZMÁN IN PLACE TO DEPENDENT DRAINAGE WITH CLEAR/YELLOW URINE IN PLACE. ORDERS FOR CVP FROM DR TORREZ. CURRENTLY NOTED AT 13. PATIENT SCREENED POSITIVE FOR SEPSIS, DR TORREZ NOTIFIED OF 5.9 LACTIC, DR TORREZ HESITANT TO ORDER FLUIDS R/T HEART FAILURE. CARDIOLOGY SEEING PATIENT FOR ELEVATED TROPONINS. TICK NOTED TO PAITENT'S RIGHT SHOULDER. DR TORREZ NOTIFIED WHO GAVE ORDERS TO REMOVE AND SEND FOR ANALYSIS. REMOVED BY HAROLDO PHOENIX AND SENT TO LAB. AND DAUGHTER ARRIVED SOON AFTER. UPDATED ON PLAN OF CARE. STATES PATIENT HAS BEEN INTUBATED TWICE IN THE LAST TWO YEARS, AND ARE UPSET BECAUSE PATIENT WAS SUPPOSED TO BE DISCAHRGED FROM [facility] ON THURSDAY. ANSWERED ALL QUESTIONS, STATED THAT IF THEY HAD FURTHER QUESITONS, THEY WOULD LET NURSING KNOW. WILL CONTINUE WITH OUTLINED PLAN OF CARE.
[2017-12-09 16:21] LABS: BE 2.5 mmol/L (-2 to +3); HCO3 29.2 mmol/L (22.0-26.0); PO2 122.6 mmHg (75.0-100.0); pH 7.336 (7.340-7.450)
[2017-12-09 16:24] LABS: PCO2 55.9 mmHg (35.0-45.0)
--- NOTE | 2017-12-09 16:47 | 2DMMODE ---
[place] [address] 2 D/M-MODE ECHOCARDIOGRAM Name: YVES CARRANZA Room: [address] IN [facility]#: [id number] Admission: 12/08/17 Attend Phys: Kulwinder Bell, Discharge: 12/16/17 Date of : 35 Date of Service: 12/09/17 1647 Report #: [id number] THIS REPORT FOR: //name// APPROVED REPORT Study performed: 12/09/2017 14:52:40 EXAM: Comprehensive 2D, Doppler, and color-flow Echocardiogram Patient Location: In-Patient Room #: 005 Status: routine BSA: 1.58 HR: 112 bpm BP: 95/59 mmHg Rhythm: NSR Other Information Study Quality: Good Indications COPD Dyspnea 2D Dimensions LVEF(%): 55.53 (>50%) IVSd: 12.21 (7-11mm) LVOT Diam: 18.72 (18-24mm) LVDd: 32.14 mm PWd: 12.31 (7-11mm) Ascending Ao: 37.47 (22-36mm) LVDs: 23.14 (25-40mm) Aortic Root: 31.43 mm Lange's LVEF: 55.53 % Volumes Left Atrial Volume (Systole) LA ESV Index: 19.90 mL/m2 Aortic Valve AoV Peak Kedar.: 2.01 m/s AO Peak Gr.: 16.11 mmHg LVOT Max P.56 mmHg AO Mean Gr.: 9.91 mmHg LVOT Mean P.96 mmHg LVOT Max V: 1.18 m/s AO V2 VTI: 27.77 cm LVOT Mean V: 0.79 m/s YOVANY (VTI): 1.56 cm2 LVOT V1 VTI: 15.76 cm AI Franklin: 1.37 m/s2 AI PHT: 696.18 [place] [address] 2 D/M-MODE ECHOCARDIOGRAM Name: YVES CARRANZA Room: [address] IN ..#: [id number] Admission: 12/08/17 Attend Phys: Kulwinder Bell, Discharge: 12/16/17 Date of : 35 Date of Service: 12/09/17 1647 Report #: [id number] TDI Medial E' Kedar.: 0.05 m/s Lateral E' Kedar.: 0.07 m/s Pulmonary Valve PV Peak Kedar.: 2.05 m/s PV Peak Gr.: 16.76 mmHg Tricuspid Valve TR Peak Gr.: 36.13 mmHg RVSP: 41.00 mmHg Left Ventricle The left ventricle is normal size. There is moderate diffuse hypokinesis noted. Mild concentric left ventricular hypertrophy. Left ventricular systolic function is moderately decreased. LVEF is 35%. Grade I - abnormal relaxation pattern. Right Ventricle The right ventricle is normal size. The right ventricular systolic function is normal. Atria The left atrium size is normal. The right atrium size is normal. Aortic Valve Mild aortic valve sclerosis. Mild aortic regurgitation. Mild aortic stenosis. Mitral Valve Severe mitral annular calcification. There is no mitral valve regurgitation noted. No evidence of mitral valve stenosis. Tricuspid Valve The tricuspid valve is normal in structure. Mild tricuspid regurgitation. The RVSP is 40-45 mmHg. Pulmonic Valve The pulmonary valve is normal in structure. There is no pulmonic valvular regurgitation. Great Vessels The aortic root is normal in size. IVC is normal in size and collapses with >50% [place] [address] 2 D/M-MODE ECHOCARDIOGRAM Name: YVES CARRANZA Room: [address] IN [facility]#: [id number] Admission: 12/08/17 Attend Phys: Kulwinder Bell, Discharge: 12/16/17 Date of : 35 Date of Service: 12/09/17 1647 Report #: [id number] There is no pericardial effusion. <Conclusion> The left ventricle is normal size. Mild concentric left ventricular hypertrophy. LVEF is 35%. Grade I - abnormal relaxation pattern. The right ventricle is normal size. The left atrium size is normal. Mild aortic valve sclerosis. Mild aortic regurgitation. Mild aortic stenosis. Severe mitral annular calcification. There is no mitral valve regurgitation noted. No evidence of mitral valve stenosis. The tricuspid valve is normal in structure. Mild tricuspid regurgitation. The RVSP is 40-45 mmHg. IVC is normal in size and collapses with >50% inspiration There is no pericardial effusion. There is moderate diffuse hypokinesis noted. Left ventricular systolic function is moderately decreased. <ELECTRONICALLY SIGNED> By: Anant Stout MD, FACC 12/09/17 1647 46 46 Anant Stout MD, FACC /INF
--- NOTE | 2017-12-09 17:45 | NUR ---
MINIMAL IMPROVEMENT NOTED ON VENTILATOR. DR SINGH IN TO SEE PATIENT THIS AFTERNOON, AND ORDERED ABG AND REPEAT XRAY FOR THE AM. PATIENT REMAINS SEDATED TO A RASS OF -1 ON VERSED 6MG/HR (12ML/HR). VSS. AFEBRILE. TRACING NSR TO SINUS TACH IN THE LOW 100S, WHICH IS NOTED TO BE IMPROVED FROM 130S. OW SAT 100% ON 70 FIO2. VENT SET AT 12 RR/MIN, BREATHES OVER THE VENTILATOR. GUZMÁN TO DEPENDENT DRAINAGE, DRAINING YELLOW URINE WITH SEDIMENT NOTED. SKIN REMAINS INTACT WITH Q2 TURNS THIS SHIFT. YELLOW SECRETIONS COMING FROM OG TUBE WHICH IS AT 55CM AND TO LIS. LACTIC ACID DOWN TO 1.3 FROM 5.9. CVP LINE RUNS 12-18 THIS SHIFT. DAUGHTER, , AND GRANDSON TO SEE PATIENT THIS SHIFT. DENIES FURTHER NEEDS FROM NURSING AT THIS TIME.
[2017-12-10] VITALS (19 sets, daily range): BP systolic 98–126; BP diastolic 55–69
[2017-12-10 04:31] LABS: BE 11.3 mmol/L (-2 to +3); HCO3 36.5 mmol/L (22.0-26.0)
[2017-12-10 04:33] LABS: PO2 125.1 mmHg (75.0-100.0)
--- NOTE | 2017-12-10 06:59 | NUR ---
ASSUMED PATIENT CARE AT 1900. PATIENT INTUBATED AT THIS TIME. 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 RESPONDS TO VERBAL STIMULI. CENTRAL LINE PATENT TO BLOOD DRAW AND FLUSHES. CVP INTACT. GUZMÁN PATENT TO DEPENDENT DRAINAGE. IV ABT'S. OG TO INTERMITTENT SUCTION. SKIN INTACT. TURNED Q 2 HOURS.
--- NOTE | 2017-12-10 10:54 | NUR ---
PT TRANSFERRED TO ICU YESTERDAY AND INTUBATED. REMAINS SEDATED ON VENT. NO FAMILY HERE AT THIS TIME BUT DAUGHTER HAS CALLED TO CHECK ON HOW SHE IS DOING. CASE MGT TO CONTINUE TO FOLLOW.
--- NOTE | 2017-12-10 11:41 | CON ---
[address] [address] CONSULTATION Name: YVES CARRANZA Room: [address] IN M.R.#: [id number] Admission: 12/08/17 Attend Phys: Kulwinder Bell MD Discharge: 12/16/17 Date of : 35 Report #: [id number] THIS REPORT FOR: //name// CC: Jazlyn Bell DATE OF SERVICE: 12/09/2017 ATTENDING PHYSICIAN: Mario Funes MD REASON FOR EVALUATION: Pneumonitis, complicated by ARDS, also apparent tick exposure. HISTORY OF PRESENT ILLNESS: Chart reviewed, patient examined. This is an 82-year-old woman with known COPD who is O2 requiring apparently who has been ill for the last couple-3 weeks, had been hospitalized at least at 2 other facilities, also a nursing facility. All related to COPD, pneumonitis, progressive weakness. She was reevaluated due to worsening dyspnea, was found to have an oxygen saturation of 80%. In spite of noninvasive measures, she continued to deteriorate and ultimately was intubated. She was seen in intensive care unit. Evaluation noted radiographic changes suggestion of severe COPD with emphysema. Did have a pCO2 elevated in the 50-[address] of the chest: No evidence of PE or aortic dissection. Lactic acid was elevated at 5.9. She was then started empirically on broad spectrum antimicrobial therapy with piperacillin and tazobactam. She was noted to have tick that had its head embedded on her back. At this point, she is unable to give any history, all obtained from the family. ALLERGIES: ASPIRIN. MEDICATIONS: Include pantoprazole, Zosyn, fentanyl, midazolam, lorazepam, methylprednisolone. PAST MEDICAL HISTORY: COPD with emphysematous changes, has known vasculopathy, coronary artery disease, previous acute myocardial infarction, previous appendectomy. SOCIAL HISTORY: Former smoker. No ethanol. FAMILY HISTORY: Noncontributory. REVIEW OF SYSTEMS: As above, not obtainable. PHYSICAL EXAMINATION: GENERAL: She appears chronically ill, undernourished. She is supine[place] [address] CONSULTATION Name: YVES CARRANZA Room: [address]#: [id number] Admission: 12/08/17 Attend Phys: Kulwinder Bell MD Discharge: 12/16/17 Date of : 35 Report #: [id number] VITAL SIGNS: Temperature 98, pulse 98, respirations 19, blood pressure 100/54. SKIN: Warm, dry, no rashes. HEENT: Otherwise, unremarkable. LUNGS: Diminished overall breath sounds. Few scattered crackles. HEART: Regular. Borderline tachycardic. No appreciated murmur. ABDOMEN: Mildly distended, soft. There are no peritoneal signs. GENITOURINARY: Deferred. RECTAL: Deferred. LABORATORY DATA: Most recent ABG: A pH 7.336, pCO2 of 55.9, pO2 of 122.6 that was on the FiO2 of 70%. Lactic acid recorded at 5.9, repeat was 1.9. Electrolytes: Sodium 139, potassium 4.1, chloride 98, bicarbonate is 37, BUN and creatinine 28 and 0.9, albumin is 3.2, total protein is 7.2. LFTs unremarkable. CBC: White count of 9.9, H and H 8.1 and 24.5, platelets of 209. ASSESSMENT: Respiratory failure due to severe underlying lung disease, probably has a component of pneumonitis. We will continue piperacillin and tazobactam. Some concern about early adult respiratory distress syndrome, certainly at risk, very little spare in terms of her pulmonary function. Secondly had a tick. We will go ahead and empirically start with doxycycline. It is difficult to ascertain where she may have picked it up, although per nurse reported was in part embedded, so that certainly raises a question of possibility. We will see how she does clinically and follow her laboratory values as well. <ELECTRONICALLY SIGNED> By: Myron Balderas MD 12/10/17 1141 1656 0730Myron Balderas MD /nt
--- NOTE | 2017-12-10 18:34 | NUR ---
PATIENT PROGRESSING TOWARDS GOALS. ABGS IMPROVED TODAY. PULMONARY DID NOT WANT TO ATTEMPT WEANING TRIAL TODAY. NO OTHER ACUTE EVENTS THROUGHOUT SHIFT.
[2017-12-11] VITALS (14 sets, daily range): BP systolic 108–144; BP diastolic 53–85
[2017-12-11 08:52] LABS: BE 1.4 mmol/L (-2 to +3); HCO3 27.3 mmol/L (22.0-26.0); PO2 64.1 mmHg (75.0-100.0)
[2017-12-11 08:53] LABS: PCO2 50.6 mmHg (35.0-45.0)
--- NOTE | 2017-12-11 09:39 | CON ---
[facility] [address] [place] [address] CONSULTATION Name: YVES CARRANZA Room: [address] IN M.R.#: [id number] Admission: 12/08/17 Attend Phys: Kulwinder Bell MD Discharge: 12/16/17 Date of : 35 Report #: [id number] THIS REPORT FOR: //name// CC: Jazlyn Bell DATE OF SERVICE: 12/09/2017 REQUESTING PHYSICIAN: Mario Funes M.D. REASON FOR CONSULTATION: Respiratory failure, now on ventilator. DISCUSSION: The patient is an 82-year-old woman with a history of underlying COPD, chronic respiratory failure. She is on O2, though I do not believe she has been steroid dependent. She has had multiple hospitalizations over the last several years. She is a former smoker, quitting I believe about a year ago. She was just recently hospitalized at [facility]. At that point, she was treated for pneumonia, constipation, abdominal pain. She had been transferred to [facility] from [facility]. She was subsequently discharged on 12/05/2017 to [facility]. She was brought from the [facility] to the ED here at [facility] yesterday evening. Apparently, she was having increasing shortness of breath. Had low O2 saturations, was placed on CPAP en route. She was admitted, was kept on BiPAP overnight; however, her condition worsened with worsening hypercapnia and was subsequently intubated in the intensive care unit. I have been able to obtain some records here from [facility]. She has also had several hospitalizations here at [facility] as well. She has been intubated previously. Reviewing notes from [facility] when she was there this month, palliative care was involved with her care. She had been made a DNR. Palliative care was going to continue to follow if she was able to be discharged home from skilled facility. She has chronic respiratory failure as noted. She is chronically hypercapnic. She is followed on an outpatient basis intermittently with the [facility]. At one point, Trilogy was arranged for her; however, that was picked up due to noncompliance. Even in the hospital, unfortunately, she has not been overly compliant using CPAP and BiPAP for any length of time. Prior to discharge from [facility] earlier this week, she had begun refusing her BiPAP, which had been recommended that she sleep with it at night. I do have access to some pulmonary function studies, which were done 3 years ago. At that time, her FEV1 was only 0.98. Her FEV1/FVC ratio was 49%, was consistent [place] [address] CONSULTATION Name: YVES CARRANZA Room: [address] IN M.R.#: [id number] Admission: 12/08/17 Attend Phys: Kulwinder Bell MD Discharge: 12/16/17 Date of : 35 Report #: [id number] She has got quite an extensive past medical history. She does follow with Dr. Terrence Armendariz. Has a history of coronary artery disease, paroxysmal atrial fibrillation. Thought she may have had a non-STEMI when she was hospitalized earlier this month as well. Has been intubated previously as noted. Has had prior episodes of pneumonia, has had a prior appendectomy, restless legs syndrome, thromboembolic disease, tubal . MEDICATIONS: At the time she was admitted here, apparently her medications were Plavix, Protonix, prednisone taper, Ceftin, Carafate, simethicone, DuoNeb q.i.d., primidone, Paxil, Dulcolax, milk of magnesia p.r.n., MiraLax p.r.n., p.r.n. Ventolin inhaler, B12, ferrous sulfate, fluticasone nasal spray, Mucinex, Augmentin, docusate, Lasix, lorazepam, atorvastatin, Zyrtec, spironolactone, Symbicort 160/4.5 two puffs twice a day, metoprolol. SOCIAL HISTORY: Quit smoking about a year ago. She is originally from [facility]. FAMILY HISTORY: Unable to obtain from the patient. Not likely to be helpful given her advanced age. REVIEW OF SYSTEMS: Unable to obtain from the patient. PHYSICAL EXAMINATION: GENERAL APPEARANCE: We have an elderly woman. Does look her stated age. She has appearance of someone who is chronically ill. She is currently intubated and sedated on the ventilator with a Versed drip going. HEENT: Head is normocephalic. Sclerae appear nonicteric. Mucous membranes dry. NECK: Negative for adenopathy. Neck veins just slightly full. No supraclavicular adenopathy. HEART: Regular with periods of irregularity. No definite S3 is heard. LUNGS: Reveal breath sounds to be markedly diminished. She has scattered expiratory wheezes heard. Prolonged expiratory phase. ABDOMEN: Soft. No definite hepatosplenomegaly is noted. Healed ecchymotic areas noted. EXTREMITIES: Does have 1+ edema noted. SKIN: Warm. LABORATORY AND X-RAY FINDINGS: Chest x-ray just recently performed does show prominence of interstitial markings noted bilaterally. Endotracheal tube is in place. Also, has a left IJ catheter and a gastric tube. Arterial blood gases done yesterday evening on admission, she had a pH of 7.40, pCO2 of 55, pO2 of 115, bicarb is 33 with a saturation of 97%. It is not clear what FiO2 she was on. Later in the evening, pH 7.44, pCO2 of 53, pO2 of 78, bicarbonate is 35 on 2 liters with saturations 94%. This afternoon, prior to intubation on BiPAP, she had a pH of 7.14, pCO2 of 86, pO2 was less than 25 with a saturation of 24%. [place] [address] CONSULTATION Name: YVES CARRANZA Room: [address] IN M.R.#: [id number] Admission: 12/08/17 Attend Phys: Kulwinder Bell MD Discharge: 12/16/17 Date of : 35 Report #: [id number] On her chemistry yesterday, BUN is 28, creatinine 0.9, potassium is 4.1. LFTs were normal. Lactic acid up to 5.9. Troponin 0.11. ProBNP yesterday 9151. Coags were normal. White blood cell count 9900, hemoglobin 8.1, hematocrit 24.5, platelets 209,000. We do have a copy of echocardiogram done this month at [facility], she has concentric LVH. Systolic function was normal with an EF of 50-55%. Had grade 1 diastolic dysfunction. RV revealed normal systolic function. She had calcified mitral valve leaflets, but had no evidence of stenosis or regurgitation. She had mild to moderate aortic regurgitation. Mild aortic stenosis. Estimated systolic pulmonary artery pressure was 40 mmHg. She did have a CT scan done at [facility]. Had extensive changes of emphysema. Aneurysm noted as well. IMPRESSION: 1. Acute respiratory failure superimposed on chronic respiratory failure, has now been intubated, has been intubated previously. At baseline, has severe chronic obstructive pulmonary disease. Unfortunately, she has not been compliant with use of Trilogy or something similar at night in the past. 2. Chronic obstructive pulmonary disease, is severe. 3. History of coronary artery disease. May have had another non-ST elevation myocardial infarction. Poor candidate for any intervention. 4. Peripheral vascular disease. 5. Lactic acidosis. May have come from hypoperfusion. Also, increased work of breathing. 6. Protein calorie malnutrition. Albumin is low at 3.2. RECOMMENDATIONS: 1. Wean FiO2 and follow up blood gases. We will also add Brovana since she is on Symbicort. 2. Continue with DuoNeb every 4 hours and IV Solu-Medrol. 3. Check sputum cultures. Also, check MRSA. 4. Await and see how she does over the next several days. Reviewing records from [facility], she was being followed by the palliative care team. Decisions have been made for DNR status and have palliative care follow her in the home if she was able to subsequently be discharged home. If she does not improve, need to address whether or not care is withdrawn. It was also thought by my associates who had seen her with her other hospital stays this year, if she was reintubated, was very likely she may require tracheostomy. This would then necessitate her being in long-term care. <ELECTRONICALLY SIGNED> By: Lili Webb MD 12/11/17 0939 1446 Ra Jimenez MD /nt
--- NOTE | 2017-12-11 12:46 | NUR ---
PATIENT ALERT TO PERSON ASKING QUESTIONS ABOUT EVENTS OF PAST FEW DAYS. EXTUBTED TO 3 LITERS NASAL CANNULA AT 1040. FAMILY AT BEDSIDE. CONSULTING PT OT AND SPEECH.
--- NOTE | 2017-12-11 13:06 | NUR ---
PATIENT UP IN ROOM ON 5 LITERS O2. CO PAIN REGULARLY. GAVE ADDITIONAL MORPHINE DURING DRESSING CHANGE. ASKING ABOUT TX TO TELE. ULTRASOUND REVIEWED BTY DR MATSON REQUESTED ORTHO SEE PT. MRI ORDERED SCREENING DONE.
[2017-12-11 15:11] LABS: BE 5.9 mmol/L (-2 to +3); HCO3 32.7 mmol/L (22.0-26.0); PCO2 VENOUS 63.1 mmHg (41.0-51.0); PO2 VENOUS 38.1 mmHg (35.0-45.0)
--- NOTE | 2017-12-11 20:01 | NUR ---
INITAL ASSESSMENT COMPLETED AT 1930. PT ALERT AND ORIENTED X4. PT HAS OCCASIONAL NON PRODUCTIVE COUGH. MUCOMYST TREATMENTS STARTED TODAY, EDUCATED PT REGARDING ACTION OF MED. PT DENIES PAIN AT THAT TIME. CALL LIGHT IN REACH, PT USING APPROPRIATELY.
--- NOTE | 2017-12-11 22:15 | NUR ---
PT ON BIPAP PER RT AT THIS TIME.
--- NOTE | 2017-12-11 23:16 | NUR ---
AT 2300 PT REQUESTED BIPAP OFF TO DRINK AND ATTEMPT TO COUGH UP PHLEGM. PT BECAME TACHYPNIC, ANXIOUS AND TAQCHYCARDIC WITH HEART RATE AT 144. O2 SAT DROPPED TO 85% ON 3 LITERS NASAL CANULA. PT GIVEN PRN MORPINE FOR AIR HUNGER. BIPAP BACK ON IMMEDIATELY. PT STILL TACHYPNIC WITH RESPIRATIONS IN MID 30'S. HEART RATE 120'S.
[2017-12-12] VITALS (19 sets, daily range): BP systolic 128–163; BP diastolic 72–89
--- NOTE | 2017-12-12 02:48 | NUR ---
PT HAVING ANXIETY, TACHYCARDIA AND TACHYPNEA. PT GIVEN PRN ATIVAN PO. PT GIVEN PRN MORPINE FOR AIR HUNGER.
[2017-12-12 03:59] LABS: HEMATOCRIT 21.7 % (37.0-47.0); HEMOGLOBIN 7.1 gm/dL (12.0-15.0); MCH 34.1 pg (26.0-34.0); MCHC 32.6 g/dL (28.0-37.0); MCV 104.7 fL (80.0-100.0); MPV 7.9 fl. (7.2-11.1); NUCLEATED RBCS 1 /100WBC; PLATELET COUNT* 189 thou/uL (150-400); RBC 2.07 mil/uL (4.20-5.00); RDW-CV 18.9 % (10.5-14.5); WBC 9.4 thou/uL (4.0-11.0)
[2017-12-12 04:47] LABS: ALBUMIN 2.7 g/dL (3.4-5.0); CALCIUM 8.2 mg/dL (8.5-10.1); CREATININE 0.8 mg/dL (0.6-1.3); POTASSIUM 3.2 mmol/L (3.5-5.1); TOTAL BILIRUBIN 0.3 mg/dL (<0.1-1.0); TOTAL PROTEIN 6.3 g/dL (6.4-8.2)
[2017-12-12 07:12] LABS: ABSOLUTE LYMPHOCYTES 0.2 thou/uL (0.8-5.3); ABSOLUTE MONOCYTES 0.3 thou/uL (0.0-1.2); ABSOLUTE NEUTROPHILS 8.9 thou/uL (1.6-8.1); PLATELET ESTIMATE ADEQUATE
[2017-12-12 07:13] LABS: ANISOCYTOSIS 1+; HYPOCHROMASIA 1+; POIKILOCYTOSIS 1+
[2017-12-13] VITALS (18 sets, daily range): BP systolic 124–166; BP diastolic 65–97
[2017-12-13 07:42] LABS: ABSOLUTE LYMPHOCYTES 0.5 thou/uL (0.8-5.3); ABSOLUTE MONOCYTES 0.3 thou/uL (0.0-1.2); ABSOLUTE NEUTROPHILS 6.3 thou/uL (1.6-8.1); BASOPHILS 0.6 %; HEMATOCRIT 28.1 % (37.0-47.0); LYMPHOCYTES 6.3 %; MCH 32.9 pg (26.0-34.0); MCHC 32.9 g/dL (28.0-37.0); MCV 99.8 fL (80.0-100.0); MONOCYTES 4.4 %; NUCLEATED RBCS 1 /100WBC; PLATELET COUNT* 188 thou/uL (150-400); POLYS 88.7 %; RBC 2.81 mil/uL (4.20-5.00); RDW-CV 22.7 % (10.5-14.5); WBC 7.1 thou/uL (4.0-11.0)
[2017-12-13 07:46] LABS: HEMOGLOBIN 9.2 gm/dL (12.0-15.0)
[2017-12-13 07:57] LABS: ALBUMIN 2.8 g/dL (3.4-5.0); CALCIUM 8.5 mg/dL (8.5-10.1); CREATININE 0.7 mg/dL (0.6-1.3); POTASSIUM 5.2 mmol/L (3.5-5.1); TOTAL BILIRUBIN 0.6 mg/dL (<0.1-1.0)
--- NOTE | 2017-12-13 18:18 | NUR ---
AGREE WITH SIMRAN, PATIENT PROGRESSING.
--- NOTE | 2017-12-13 18:33 | NUR ---
PT CARE ASSUMED AFTER REPORT. SR/BBB ON MONITOR. O2 2L NC. GUZMÁN TO DD. PRN MORPHINE GIVEN FOR AIR HUNGER. ATIVAN FOR ANXIETY. DENIES PAIN. SLOW TO PROGRESS TOWARDS GOALS.
[2017-12-14] VITALS (12 sets, daily range): BP systolic 100–158; BP diastolic 58–86
[2017-12-14 02:53] LABS: ABSOLUTE LYMPHOCYTES 0.5 thou/uL (0.8-5.3); ABSOLUTE MONOCYTES 0.3 thou/uL (0.0-1.2); ABSOLUTE NEUTROPHILS 6.1 thou/uL (1.6-8.1); HEMATOCRIT 28.3 % (37.0-47.0); HEMOGLOBIN 9.3 gm/dL (12.0-15.0); LYMPHOCYTES 6.6 %; MCH 32.9 pg (26.0-34.0); MCHC 32.7 g/dL (28.0-37.0); MCV 100.4 fL (80.0-100.0); MONOCYTES 4.6 %; MPV 7.6 fl. (7.2-11.1); NUCLEATED RBCS 1 /100WBC; PLATELET COUNT* 183 thou/uL (150-400); POLYS 88.8 %; RBC 2.82 mil/uL (4.20-5.00); RDW-CV 21.7 % (10.5-14.5); WBC 6.9 thou/uL (4.0-11.0)
[2017-12-14 03:05] LABS: PREALBUMIN 28.6 mg/dL (18.0-35.7)
[2017-12-14 03:24] LABS: ALBUMIN 2.9 g/dL (3.4-5.0); CALCIUM 9.1 mg/dL (8.5-10.1); CREATININE 0.7 mg/dL (0.6-1.3); POTASSIUM 5.1 mmol/L (3.5-5.1); TOTAL BILIRUBIN 0.4 mg/dL (<0.1-1.0); TOTAL PROTEIN 6.1 g/dL (6.4-8.2)
--- NOTE | 2017-12-14 10:36 | NUR ---
SPOKE WITH PT AND , DTR CAME IN TO THE ROOM DURING THE DISCUSSION, ABOUT DISCHARGE OPTIONS. PT WAS AT [facility] PRIOR TO ADMISSION, SHE IS ON SERVICE WITH [facility]. PT TELE STATUS TODAY. DTR WOULD LIKE TO SEE HOW PT DOES WITH THERAPY HERE AND THEN DISCUSS OPTIONS AGAIN. PT SAID THE FAMILY DISCUSSED HOSPICE YESTERDAY BUT SHE ISN'T SURE SHE IS READY FOR THAT YET. PT WANTS TO RETURN HOME BUT IS WORRIED SHE IS TO WEAK TO BE ABLE TO MANAGE AT HOME. HAS DEMENTIA, ISN'T ABLE TO FOLLOW THE CONVERSATION.
--- NOTE | 2017-12-14 13:42 | NUR ---
Nutrition: screen for LOS. No new wt since admit, wt stable from Jun wt 110-120 lb; wt is WNL. PAB 28.6. Meds reveiwed. Pt reported appetite improved, no intake records. Appears at low nutrition risk at this time. Rec offer snacks/supplements PRN.
--- NOTE | 2017-12-14 16:14 | NUR ---
PT UP TO CHAIR WITH FAMILY IN ROOM TIS AFTERNOON.
--- NOTE | 2017-12-14 17:24 | NUR ---
RECEIVED REPORT FROM MAURI IN ICU. PT TRANSFERED TO [facility] FLOOR AROUND 1645. ASSUMED CARE. PT A&O X4 WITH SOME OCCASIONAL FORGETFULLNESS. INDUSTRIAL PARAMEDIC PLACED TRACING SR WITH BBB. VSS. O2 SAT 98% ON 2L PER NC. THIS RN AGREES WITH ASSESSMENT AND CHARTING DONE BY MAURI ZARCO. AND DAUGHTER AT BEDSIDE. PT ORIENTED TO ROOM, BED AND CALL LIGHT. LUNGS COARSE AND DIMINISHED THROUGHOUT WITH WHEEZES IN THE BASES. GUZMÁN IN PLACE AND DRAINING, CLOUDY YELLOW URINE NOTED. PT REFUSED TO EAT DINNER THIS EVENING STATING "I'M JUST NOT HUNGRY RIGHT NOW". LEFT TRIPLE LUMEN CENTRAL LINE IN PLACE - WILL NOT DRAW BLOOD. PT DENIES PAIN OR DISCOMFORT AT THIS TIME. PT CURRENTLY RESTING IN BED. CALL LIGHT IS WITHIN REACH, FALL PRECAUTIONS ARE IN PLACE. HOURLY ROUNDING PERFORMED. WCTM FOR DURATION OF SHIFT.
[2017-12-15] VITALS: BP 146/68
[2017-12-15 04:00] VITALS: BP 132/68
[2017-12-15 05:35] LABS: ABSOLUTE BASOPHILS 0.1 thou/uL (0.0-0.2); ABSOLUTE LYMPHOCYTES 0.5 thou/uL (0.8-5.3); ABSOLUTE MONOCYTES 0.4 thou/uL (0.0-1.2); ABSOLUTE NEUTROPHILS 8.2 thou/uL (1.6-8.1); BASOPHILS 0.9 %; EOSINOPHILS 0.1 %; HEMATOCRIT 33.2 % (37.0-47.0); LYMPHOCYTES 5.6 %; MCH 32.8 pg (26.0-34.0); MCHC 33.1 g/dL (28.0-37.0); MCV 99.1 fL (80.0-100.0); MONOCYTES 4.2 %; MPV 7.9 fl. (7.2-11.1); NUCLEATED RBCS 0 /100WBC; PLATELET COUNT* 179 thou/uL (150-400); POLYS 89.2 %; RBC 3.35 mil/uL (4.20-5.00); RDW-CV 20.4 % (10.5-14.5); WBC 9.1 thou/uL (4.0-11.0)
[2017-12-15 05:58] LABS: CALCIUM 9.6 mg/dL (8.5-10.1); CREATININE 0.7 mg/dL (0.6-1.3); POTASSIUM 4.7 mmol/L (3.5-5.1); TOTAL BILIRUBIN 0.7 mg/dL (<0.1-1.0); TOTAL PROTEIN 6.7 g/dL (6.4-8.2)
--- NOTE | 2017-12-15 08:09 | NUR ---
PT IS ABLE TO COMMUNICATE HER NEEDS TO STAFF EFFECTIVELY. CURRENT PAIN MEDICATION REGIMEN HAS BEEN ADEQUATE FOR CONTROLLING HER PAIN UP TO THIS TIME. CODE STATUS IS DNR/DNI. RAMIREZ IS PATENT. PT MAY GO FOR REHAB AT DISCHARGE RATHER THAN GOING HOME RIGHT AWAY.
[2017-12-15 08:20] VITALS: BP 115/61
--- NOTE | 2017-12-15 09:39 | NUR ---
Cm spoke with Yahaira from [facility], she was able to speak with Pt's dtr, plan is to wait and see if Pt gets better, so that she can resume skilled, prior to returning home. Possible hospice admission after skilled.
--- NOTE | 2017-12-15 11:18 | NUR ---
ASSUMED CARE OF PT AT 0730. PT RESTING IN BED WAITING FOR BREAKFAST. PT A&0X4, DENIES ANY PAIN OR SHORTNESS OF BREATH AT THIS TIME. SHORTNESS OF BREATH NOTED WITH ACTIVITY. PT TRACING SR WITH BBB ON THE HIM CLERK. ON 2L NC SAT 93%. PT STATES SHE FEELS A LITTLE CONSTIPATED. TREATED WITH PRN COLACE. GUZMÁN TO DEPENDENT DRAINAGE. PT UP WITH MAX ASSIST, WEAK AND UNSTEADY AT TIMES. PT GOAL FOR TODAY IS TO WORK WITH PHYSICAL AND OCCUPATIONAL THERAPY AND HOSPICE / SNF CONSULT IN PLACE. AM ASSESSMENT CHARTED. MEDICATIONS PER AUG. PT REPOSITIONS SELF WITH REMINDERS. HOURLY ROUNDING OBSERVED. BED IN LOW POSITION. BED/CHAIR ALARM IN PLACE. FALL PRECAUTIONS IN PLACE. CALL LIGHT WITHIN REACH. WILL CONTINUE PLAN OF CARE.
[2017-12-15 11:30] VITALS: BP 130/72
[2017-12-15 16:00] VITALS: BP 136/68
--- NOTE | 2017-12-15 16:40 | NUR ---
NO ACUTE CHANGES THROUGHOUT SHIFT. REFER TO CHARTING. PT WORKED WITH PHYSICAL AND OCCUPATIONAL THERAPY TODAY-TOLERATED WELL. PT SAT UP IN RECLINER FOR AFTERNOON. PT DAUGHTER AND HERE THIS AFTERNOON TO VISIT. PT HAS DECIDED TO CONTINUE WITH [facility] REHAB OPPOSED TO HOSPICE. PT SLOWLY PROGRESSING TOWARDS GOALS. PT CONTINUES TO BE ON 2L NC SAT UPPER 90'S. TRACING SR WITH BBB ON THE CLAY ARTISAN. PT UP WITH 2 ASSIST TO BSC. PT HAD BOWEL MOVEMENT TODAY. GUZMÁN TO DEPENDENT DRAINAGE. PT DENIES ANY PAIN THROUGHOUT AFTERNOON. MEDICATIONS PER AUG. PT REPOSITIONS SELF WITH REMINDERS. HOURLY ROUNDING OBSERVED. BED IN LOW POSITION. BED/CHAIR ALARM IN PLACE. FALL PRECAUTIONS IN PLACE. CALL LIGHT WITHIN REACH. WILL CONTINUE PLAN OF CARE.
[2017-12-15 19:45] VITALS: BP 136/92
[2017-12-16] VITALS: BP 140/59
[2017-12-16 04:00] VITALS: BP 138/75
[2017-12-16 04:51] LABS: HEMATOCRIT 31.4 % (37.0-47.0); HEMOGLOBIN 10.4 gm/dL (12.0-15.0); MCH 32.8 pg (26.0-34.0); MCV 99.6 fL (80.0-100.0); MPV 7.8 fl. (7.2-11.1); NUCLEATED RBCS 0 /100WBC; PLATELET COUNT* 201 thou/uL (150-400); RBC 3.16 mil/uL (4.20-5.00)
[2017-12-16 05:04] LABS: ALBUMIN 2.8 g/dL (3.4-5.0); CALCIUM 9.9 mg/dL (8.5-10.1); CREATININE 0.6 mg/dL (0.6-1.3); POTASSIUM 3.9 mmol/L (3.5-5.1); TOTAL BILIRUBIN 0.7 mg/dL (<0.1-1.0); TOTAL PROTEIN 6.2 g/dL (6.4-8.2)
--- NOTE | 2017-12-16 05:40 | NUR ---
RECEIVED REPORT AND ASSUMED CARE AT 1900. VSS. CARDIAC MONIORING IN PLACE. PT DENIES ANY COMPLAINTS OF PAIN. ASSESSMENT COMPLETED CHARTED, MEDICATIONS CHRISTENSEN PER ORDERS. DISCUSSED PLAN OF CARE WITH PT, VERBALZED UNDERSTANDING. PT REFUSING TO WEAR BIPAP AT NIGHT, DISCUSSED WITH PT BENIFITS OF BIPAP, AND RISKS OF NOT WEARING THE BIPAP ORDERED. PT VERBALIZED UNDERSTANDING AND STILL REFUSING BIPAP. PT ON 2LNC, UP WITH 2 TO BSC. HOURLY ROUNDING COMPLETED AND ALL NEEDS MET. WILL CONTINUE TO MONITOR FOR REMAIDER OF THE SHIFT
[2017-12-16 06:00] LABS: ABSOLUTE LYMPHOCYTES 0.5 thou/uL (0.8-5.3); ABSOLUTE MONOCYTES 0.1 thou/uL (0.0-1.2); ABSOLUTE NEUTROPHILS 8.5 thou/uL (1.6-8.1); PLATELET ESTIMATE ADEQUATE
[2017-12-16 06:01] LABS: ANISOCYTOSIS 1+; POIKILOCYTOSIS 1+
[2017-12-16 08:00] VITALS: BP 144/54
--- NOTE | 2017-12-16 10:35 | NUR ---
Pt discharging to [facility] SN[facility] today, facility to sisal picker around 130pm. Updated Pt's dtr. Faxed dc orders. Chart copied. Nurse report number provided, .
[2017-12-16 12:33] VITALS: BP 140/77
[2017-12-16 13:20] VITALS: BP 140/77
--- NOTE | 2017-12-16 13:39 | NUR ---
PT BEING DISCHARGED TO [facility] FOR REHAB. REPORT CALLED TO PALMIRA ZARCO AT 1335. DISCHARGE PACKET SENT WITH PT THAT INCLUDED DISCHARGE INSRTUCTIONS AND PRESCRIPTIONS ALL PERSONAL BELONGINGS TAKEN BY PT AT DISCHARGE. PT TRANSPORTED VIA W/C VAN ACCOMPANIED BY [facility].
--- NOTE | 2017-12-19 06:23 | NUR ---
UNABLE TO EDIT DOCUMENTATION IN CHART. RESTRAINTS WERE CHECKED AT 2200 ON 12/09/2017.
== END 2017-12-16 13:47 | DRG 208 ==
LOC: M.ERS 21:25 → M.2W 22:58 → M.TBA-ER 22:58 → M.2W 12-09 00:16 → M.ICU 12-09 13:09 → M.2W 12-14 16:50
PROVIDERS: Internal Medicine; Internal Medicine Pulmonary Disease; Personal Emergency Response Attendant; ADMIT Internal Medicine
DX: J96.21 Acute and chronic respiratory failure with hypoxia (principal); J69.0 Pneumonitis due to inhalation of food and vomit; G93.40 Encephalopathy, unspecified; E43 Unspecified severe protein-calorie malnutrition; I21.4 Non-ST elevation (NSTEMI) myocardial infarction; J44.1 Chronic obstructive pulmonary disease with (acute) exacerbation; J44.0 Chronic obstructive pulmonary disease with (acute) lower respiratory infection; E87.2 Acidosis; Z68.1 Body mass index [BMI] 19.9 or less, adult; Z66 Do not resuscitate; Z51.5 Encounter for palliative care; I48.0 Paroxysmal atrial fibrillation; I71.4 Abdominal aortic aneurysm, without rupture; I25.10 Atherosclerotic heart disease of native coronary artery without angina pectoris; I73.9 Peripheral vascular disease, unspecified; D63.8 Anemia in other chronic diseases classified elsewhere; Z90.49 Acquired absence of other specified parts of digestive tract; Z79.899 Other long term (current) drug therapy; Z88.6 Allergy status to analgesic agent

== ENCOUNTER 2018-01-22 13:44 | Emergency (ER) | payer OTHER ==
[~2018-01-22] VITALS: Ht 162.6 cm; Wt 48.1 kg
[~2018-01-22 13:44] MED LIST changes: +ACETAMINOPHEN325 MG; +AUGMENTIN 875-1 EACH; +BACTROBAN CREAM30 G1; +BISACODYL SUPP10 MG; +CALCIUM 500 +1 EAC5; +FLONASE 0.05%50 MCG; +FLORASTOR250 MG; +HYDROCODONE-AP1 EAC6; +IRON325; +KETOTIFEN FUMARA5 ML OPHTHALMIC; +MILK OF MA2400 MG/10; +MIRALAX17 GM; +MUCINEX600 MG; +OCUVITE EYE +1 EACH; +PREDNISONE 10 M10 MG; +TESSALON PERLE100 MG PO; +VENTOLIN HFA 1818 GM; +VITAMIN B-12500 MCG
[2018-01-22] MEDS ORDERED: SENNA8.6 MG PO (14:02)
[2018-01-22] MEDS ORDERED: CARVEDILOL12.5 MG PO (14:03)
[2018-01-22 15:14] LABS: ANION GAP < 0 mmol/L (7-16); BUN 21 mg/dL (7-18); CALCIUM 9.2 mg/dL (8.5-10.1); CHLORIDE 99 mmol/L (98-107); CO2 39 mmol/L (21-32); CREATININE 0.8 mg/dL (0.6-1.3); GLUCOSE 91 mg/dL (70-99); POTASSIUM 4.1 mmol/L (3.5-5.1); SODIUM 136 mmol/L (136-145)
[2018-01-22 15:19] LABS: ALKALINE PHOSPHATASE 61 U/L (46-116); SGOT 20 U/L (15-37); SGPT 15 U/L (30-65); TOTAL BILIRUBIN 0.3 mg/dL (<0.1-1.0); TOTAL PROTEIN 6.6 g/dL (6.4-8.2)
[2018-01-22 15:40] LABS: ABSOLUTE EOSINOPHILS 0.1 thou/uL (0.0-0.7); ABSOLUTE LYMPHOCYTES 1.3 thou/uL (0.8-5.3); ABSOLUTE MONOCYTES 0.5 thou/uL (0.0-1.2); ABSOLUTE NEUTROPHILS 3.5 thou/uL (1.6-8.1); BASOPHILS 0.5 %; EOSINOPHILS 1.5 %; HEMATOCRIT 29.5 % (37.0-47.0); LYMPHOCYTES 23.7 %; MCH 33.2 pg (26.0-34.0); MCHC 33.7 g/dL (28.0-37.0); MCV 98.4 fL (80.0-100.0); MONOCYTES 8.5 %; NUCLEATED RBCS 0 /100WBC; PLATELET COUNT* 230 thou/uL (150-400); POLYS 65.8 %; RDW-CV 16.7 % (10.5-14.5); WBC 5.3 thou/uL (4.0-11.0)
[2018-01-22] MEDS ORDERED: AUGMENTIN 875-1 EACH PO (16:03)
[2018-01-22 16:40] VITALS: BP 97/59
== END 2018-01-22 16:41 | disposition home or self-care (01) ==
LOC: M.ERS 13:44
PROVIDERS: Physician Assistant
DX: J32.9 Chronic sinusitis, unspecified (principal); J44.9 Chronic obstructive pulmonary disease, unspecified; Z88.6 Allergy status to analgesic agent; Z90.49 Acquired absence of other specified parts of digestive tract